=== PATIENT | male | born 1980 | race African-American/Black ===

== ENCOUNTER 2017-09-12 18:53 | Emergency (ER) | payer MEDICAID ==
[~2017-09-12] VITALS: Ht 193 cm; Wt 108.9 kg
[2017-09-12 19:00] VITALS: BP 114/81
== END 2017-09-12 22:00 | disposition left against medical advice (07) ==
LOC: ER 18:53
DX: M79.641 Pain in right hand (principal); Z53.21 Procedure and treatment not carried out due to patient leaving prior to being seen by health care provider